=== PATIENT | female | born 1970 | race Caucasian/White ===

== ENCOUNTER 2022-04-09 10:01 | Inpatient (IN) | payer OTHER ==
[2022-04-09 10:25] VITALS: BMI 25.7
[2022-04-09] MEDS ORDERED: SODIUM CHLORIDE 1,000 ML IV STA ×2 (11:17→19:55)
[2022-04-09] MEDS ORDERED: ONDANSETRON 4 MG/2 ML VIAL IVPUSH ONE (11:18)
[2022-04-09] MEDS ORDERED: ONDANSETRON 4 MG/2 ML VIAL ONE (11:36)
[2022-04-09 12:23] LABS: HEMATOCRIT 21.9 % (32.4-45.2); HEMOGLOBIN 7.4 GM/dL (10.7-15.3); MCH 30.6 pg (25.7-33.7); MCHC 33.9 g/dl (32.0-36.0); MEAN CELL VOLUME 90.3 fl (80-96); MEAN PLT VOLUME 8.1 fl (7.5-11.1); PLATELET COUNT 252 10^3/uL (134-434); RBC 2.43 M/mm3 (3.60-5.2); RDW 16.4 % (11.6-15.6)
[2022-04-09 12:41] LABS: URINE APPEARANCE CLEAR; URINE BILIRUBIN NEGATIVE (NEGATIVE); URINE COLOR YELLOW; URINE GLUCOSE (UA) NEGATIVE (NEGATIVE); URINE KETONE NEGATIVE (NEGATIVE); URINE LEUK ESTERASE NEGATIVE (NEGATIVE); URINE NITRITE NEGATIVE (NEGATIVE); URINE PROTEIN NEGATIVE (NEGATIVE); URINE UROBILINOGEN 0.2 mg/dL (0.2-1.0)
[2022-04-09 12:45] LABS: CALCIUM 12.3 mg/dL (8.5-10.1)
[2022-04-09 12:46] LABS: ALBUMIN 3.3 g/dl (3.4-5.0); BLOOD UREA NITROGEN 15.8 mg/dL (7-18)
[2022-04-09 12:49] LABS: CREATININE 1.6 mg/dL (0.55-1.3)
[2022-04-09 12:51] LABS: ANISOCYTOSIS 1+; BILIRUBIN,TOTAL 0.4 mg/dL (0.2-1); MACROCYTOSIS 0; TOT PROT 6.5 g/dl (6.4-8.2)
[2022-04-09] MEDS ORDERED: ONDANSETRON 4 MG/2 ML VIAL IVPUSH PRN (19:54)
[2022-04-09] MEDS ORDERED: ACETAMINOPHEN 1000 MG/100 ML BAG IVPB ONE (23:12)
[2022-04-09] MEDS ORDERED: ACETAMINOPHEN INJECTION 100 ML IVPB ONE (23:29)
[2022-04-09] MEDS: DEXTROSE 5%-NORMAL SALINE 1,000 ML IV SCH (23:49)
[2022-04-10] MEDS: POLYETHYLENE GLYCOL (HEALTHYLAX) 3350 17 GM PACKET PO SCH ×2 (04:14→10:25)
[2022-04-10] MEDS ORDERED: ACETAMINOPHEN 1000 MG/100 ML BAG IVPB PRN (05:26)
[2022-04-10 07:56] LABS: HEMATOCRIT 22.2 % (32.4-45.2); HEMOGLOBIN 7.4 GM/dL (10.7-15.3); MCH 29.8 pg (25.7-33.7); MCHC 33.5 g/dl (32.0-36.0); MEAN CELL VOLUME 89.1 fl (80-96); MEAN PLT VOLUME 7.7 fl (7.5-11.1); PLATELET COUNT 253 10^3/uL (134-434); RBC 2.49 M/mm3 (3.60-5.2); RDW 16.3 % (11.6-15.6); WHITE BLOOD COUNT 4.2 K/mm3 (4.0-10.0)
[2022-04-10 08:14] LABS: INR 1.03 (0.83-1.09); PROTHROMBIN TIME (PATIENT) 11.8 SEC (9.7-13.0)
[2022-04-10 08:17] LABS: ACTIVATED PTT 21.8 SECONDS (25.2-36.5)
[2022-04-10 08:21] LABS: BLOOD UREA NITROGEN 13.4 mg/dL (7-18)
[2022-04-10 08:25] LABS: CREATININE 1.5 mg/dL (0.55-1.3); PHOSPHOROUS 4.4 mg/dL (2.5-4.9)
[2022-04-10 09:14] LABS: ANISOCYTOSIS 0; HELMET CELLS 0; HOWELL-JOLLY BODIES 0; MACROCYTOSIS 0; OVALOCYTE 0; ROULEAU 0; SICKELED CELLS 0; TARGET CELLS 0; TEAR DROP CELLS 0; TOXIC GRANULATION 0
[2022-04-10] MEDS ORDERED: ACETAMINOPHEN 325 MG TABLET (FP) PO PRN (09:23)
[2022-04-10] MEDS ORDERED: ALPRAZolam 0.25 MG TABLET PO PRN (09:24)
[2022-04-10] MEDS ORDERED: ANASTROZOLE 1 MG TABLET PO SCH ×2 (10:00→22:00)
[2022-04-10] MEDS ORDERED: POLYETHYLENE GLYCOL (HEALTHYLAX) 3350 17 GM PACKET ONE (10:18)
[2022-04-10] MEDS: DEXTROSE 5%-NORMAL SALINE 1,000 ML IV SCH (22:39)
[2022-04-11 09:14] LABS: BASO % 1.1 % (0-2.0); EOS % 1.3 % (0-4.5); HEMATOCRIT 20.8 % (32.4-45.2); MCH 29.7 pg (25.7-33.7); MCHC 33.2 g/dl (32.0-36.0); MEAN CELL VOLUME 89.5 fl (80-96); MEAN PLT VOLUME 7.5 fl (7.5-11.1); MONO % 7.8 % (3.8-10.2); NEUT % 70.8 % (42.8-82.8); PLATELET COUNT 236 10^3/uL (134-434); RBC 2.32 M/mm3 (3.60-5.2); RDW 16.2 % (11.6-15.6); WHITE BLOOD COUNT 3.1 K/mm3 (4.0-10.0)
[2022-04-11] MEDS: POLYETHYLENE GLYCOL (HEALTHYLAX) 3350 17 GM PACKET PO SCH (09:18)
[2022-04-11 09:24] LABS: CALCIUM 10.7 mg/dL (8.5-10.1)
[2022-04-11 09:25] LABS: ALBUMIN 2.9 g/dl (3.4-5.0); BLOOD UREA NITROGEN 10.8 mg/dL (7-18)
[2022-04-11 09:28] LABS: CREATININE 1.4 mg/dL (0.55-1.3)
[2022-04-11 09:29] LABS: TOT PROT 5.9 g/dl (6.4-8.2)
[2022-04-11 09:30] LABS: BILIRUBIN,TOTAL 0.3 mg/dL (0.2-1)
[2022-04-11 09:36] LABS: HEMOGLOBIN 6.9 GM/dL (10.7-15.3)
[2022-04-11 10:40] LABS: ANISOCYTOSIS 1+; MACROCYTOSIS 1+
[2022-04-11 17:03] LABS: BF WBC & OTHER NUCLEATED CELLS 2810 /mm3
[2022-04-11] MEDS ORDERED: ONDANSETRON 4 MG/2 ML VIAL IVPUSH PRN ×2 (17:34→19:29)
[2022-04-11] MEDS ORDERED: PROPOFOL 20 ML ONE ×2 (17:38→18:19)
[2022-04-11] MEDS ORDERED: MIDAZOLAM HCL 2 MG/2 ML SINGLE DOSE VIAL ONE (18:14)
[2022-04-11] MEDS: LACTATED RINGERS SOLUTION 1,000 ML IV SCH ×2 (18:20→21:03)
[2022-04-11] MEDS ORDERED: ACETAMINOPHEN 325 MG TABLET (FP) PO PRN (19:29)
[2022-04-11] MEDS: ANASTROZOLE 1 MG TABLET PO SCH (21:03)
[2022-04-12 09:41] LABS: MCH 30.1 pg (25.7-33.7); MCHC 34.3 g/dl (32.0-36.0); MEAN CELL VOLUME 87.9 fl (80-96); MEAN PLT VOLUME 7.8 fl (7.5-11.1); PLATELET COUNT 256 10^3/uL (134-434); RBC 2.85 M/mm3 (3.60-5.2); RDW 16.5 % (11.6-15.6); WHITE BLOOD COUNT 3.8 K/mm3 (4.0-10.0)
[2022-04-12] MEDS: POLYETHYLENE GLYCOL (HEALTHYLAX) 3350 17 GM PACKET PO SCH (09:47)
[2022-04-12 09:51] LABS: HEMOGLOBIN 8.6 GM/dL (10.7-15.3)
[2022-04-12 10:15] LABS: ALBUMIN 2.9 g/dl (3.4-5.0); CALCIUM 11.4 mg/dL (8.5-10.1)
[2022-04-12 10:18] LABS: CREATININE 1.4 mg/dL (0.55-1.3)
[2022-04-12 10:20] LABS: BILIRUBIN,TOTAL 0.5 mg/dL (0.2-1); TOT PROT 6.1 g/dl (6.4-8.2)
[2022-04-12 10:51] LABS: BODY FLUID MACROPHAGES 20 %; BODY FLUID MESOTHELIAL 5 %; BODY FLUID MONOCYTE 6 %
[2022-04-12] MEDS: LACTATED RINGERS SOLUTION 1,000 ML IV SCH (15:51)
[2022-04-12] MEDS: ALPRAZolam 0.25 MG TABLET PO PRN (19:41)
[2022-04-12] MEDS ORDERED: ZOLEDRONIC ACID 4 MG in SODIUM CHLORIDE 100 ML IVPB ONE (20:19)
[2022-04-12] MEDS: ANASTROZOLE 1 MG TABLET PO SCH (22:14)
[2022-04-13] MEDS: LACTATED RINGERS SOLUTION 1,000 ML IV SCH ×4 (07:10→21:16)
[2022-04-13] MEDS: POLYETHYLENE GLYCOL (HEALTHYLAX) 3350 17 GM PACKET PO SCH (09:23)
[2022-04-13] MEDS ORDERED: FUROSEMIDE 40 MG TABLET (FP) PO ONE (10:45)
[2022-04-13 18:07] LABS: BODY FLUID ALBUMIN 2.4 g/dL (Not Estab.)
[2022-04-13] MEDS: ANASTROZOLE 1 MG TABLET PO SCH (21:16)
[2022-04-13] MEDS: ALPRAZolam 0.25 MG TABLET PO PRN (21:16)
[2022-04-14] MEDS: LACTATED RINGERS SOLUTION 1,000 ML IV SCH (06:47)
[2022-04-14 07:03] VITALS: BP 117/73; PULSE 97; TEMP 97.6
[2022-04-14 08:40] LABS: HEMATOCRIT 23.9 % (32.4-45.2); HEMOGLOBIN 8.2 GM/dL (10.7-15.3); MCH 30.6 pg (25.7-33.7); MCHC 34.3 g/dl (32.0-36.0); MEAN PLT VOLUME 7.9 fl (7.5-11.1); PLATELET COUNT 253 10^3/uL (134-434); RBC 2.69 M/mm3 (3.60-5.2); RDW 16.5 % (11.6-15.6); WHITE BLOOD COUNT 3.5 K/mm3 (4.0-10.0)
[2022-04-14 09:08] LABS: ALBUMIN 2.6 g/dl (3.4-5.0); BLOOD UREA NITROGEN 17.5 mg/dL (7-18)
[2022-04-14 09:11] LABS: CREATININE 1.6 mg/dL (0.55-1.3)
[2022-04-14 09:12] LABS: BILIRUBIN,TOTAL 0.6 mg/dL (0.2-1); TOT PROT 5.7 g/dl (6.4-8.2)
[2022-04-14 09:24] LABS: CALCIUM 9.3 mg/dL (8.5-10.1)
[2022-04-14] MEDS: POLYETHYLENE GLYCOL (HEALTHYLAX) 3350 17 GM PACKET PO SCH (11:26)
== END 2022-04-14 18:28 | disposition home or self-care (01) | DRG 987 ==
LOC: JER 10:01 → JERBED 18:37 → J4S 04-10 20:19
PROVIDERS: ADMIT Hospitalist; ATTEND Internal Medicine
PROC: BT14ZZZ Fluoroscopy of Kidneys, Ureters and Bladder (ICD-10-PCS; 2022-04-11)
PROC: 30233N1 Transfusion of Nonautologous Red Blood Cells into Peripheral Vein, Percutaneous Approach (ICD-10-PCS; 2022-04-11)
PROC: 0W9G3ZX Drainage of Peritoneal Cavity, Percutaneous Approach, Diagnostic (ICD-10-PCS; 2022-04-11)
PROC: 0TJB8ZZ Inspection of Bladder, Via Natural or Artificial Opening Endoscopic (ICD-10-PCS; principal; 2022-04-11 15:00)
PROC: 0T788DZ Dilation of Bilateral Ureters with Intraluminal Device, Via Natural or Artificial Opening Endoscopic (ICD-10-PCS; 2022-04-11 15:00)
DX: C78.6 Secondary malignant neoplasm of retroperitoneum and peritoneum (principal); U07.1 COVID-19; R18.8 Other ascites; N17.9 Acute kidney failure, unspecified; M87.852 Other osteonecrosis, left femur; M87.851 Other osteonecrosis, right femur; M48.56XA Collapsed vertebra, not elsewhere classified, lumbar region, initial encounter for fracture; N13.39 Other hydronephrosis; C79.51 Secondary malignant neoplasm of bone; I10 Essential (primary) hypertension; D64.9 Anemia, unspecified; E83.52 Hypercalcemia; H05.20 Unspecified exophthalmos; R59.0 Localized enlarged lymph nodes; M89.9 Disorder of bone, unspecified; Z88.0 Allergy status to penicillin; E07.89 Other specified disorders of thyroid; J32.0 Chronic maxillary sinusitis; J32.2 Chronic ethmoidal sinusitis
CPT/HCPCS: 36415; 36430; 70540; 71045-TC-FY; 71250-TC; 72131-TC; 72192-TC; 73700-TC-RT; 74176-TC; 76000-TC-FY; 76942-TC; 80048; 80053; 81003; 82042; 82150; 82310; 82378; 82465; 82728; 82945; 83540; 83550; 83615; 83735; 83970; 83986; 84100; 84157; 84439; 84443; 84478; 85025; 85027; 85610; 85730; 86300; 86304; 86850; 86900; 86901; 86922; 87070; 87075; 87102; 87116; 87205; 87206; 87210; 88108; 88305-TC; 93005; 93010; 94760; 99285-25; C9803-CS; J3489; P9058; U0003; U0005

== ENCOUNTER 2022-06-20 04:17 | Day surgery (SDC) | payer OTHER ==
[2022-06-14 13:10] VITALS: BMI 25.0
[2022-06-20] MEDS ORDERED: MIDAZOLAM HCL 2 MG/2 ML SINGLE DOSE VIAL ONE (13:46)
[2022-06-20] MEDS ORDERED: LIDOCAINE HCL 2% 100 MG/5 ML DISP.SYRIN ONE (13:46)
[2022-06-20] MEDS ORDERED: PROPOFOL 20 ML ONE (13:46)
[2022-06-20] MEDS ORDERED: ONDANSETRON 4 MG/2 ML VIAL ONE (14:37)
[2022-06-20] MEDS ORDERED: PROMETHAZINE HCL 25 MG/1 ML VIAL IVPUSH PRN (15:32)
[2022-06-20] MEDS ORDERED: ONDANSETRON 4 MG/2 ML VIAL IVPUSH PRN (15:32)
[2022-06-20] MEDS ORDERED: LACTATED RINGERS SOLUTION 1,000 ML IV SCH (15:45)
[2022-06-20 17:52] VITALS: BP 106/55; PULSE 95; RESP 16; TEMP 97.2
== END 2022-06-20 17:00 | disposition home or self-care (01) ==
LOC: JASU-SURG 04:17
PROVIDERS: ATTEND Urology
PROC: 0TP97DZ Removal of Intraluminal Device from Ureter, Via Natural or Artificial Opening (ICD-10-PCS; principal; 2022-06-20 14:00)
DX: Z46.6 Encounter for fitting and adjustment of urinary device (principal); N13.30 Unspecified hydronephrosis
CPT/HCPCS: 76000-TC-FY; 94760